=== PATIENT | female | born 1935 | race Caucasian/White ===

== ENCOUNTER 2019-03-27 22:07 | Emergency (ER) | payer OTHER | END 2019-03-28 02:00 | disposition home or self-care (01) | LOC: JER 03-28 02:00 | DX: I10 Essential (primary) hypertension (principal); E78.5 Hyperlipidemia, unspecified ==

== ENCOUNTER 2023-09-19 10:50 | Emergency (ER) | payer OTHER ==
[2023-09-19 11:08] VITALS: RESP 18; BMI 21.9
[2023-09-19 12:01] LABS: INR 1.16 (0.83-1.09); PROTHROMBIN TIME (PATIENT) 13.4 SEC (9.7-13.0)
[2023-09-19 12:04] LABS: ACTIVATED PTT 26.5 SECONDS (25.2-36.5)
[2023-09-19 12:06] LABS: BASO % 0.2 % (0-2.0); HEMATOCRIT 39.6 % (32.4-45.2); HEMOGLOBIN 13.2 GM/dL (10.7-15.3); LYMPH % 15.2 % (8-40); MCH 31.8 pg (25.7-33.7); MCHC 33.3 g/dl (32.0-36.0); MEAN CELL VOLUME 95.6 fl (80-96); MEAN PLT VOLUME 9.5 fl (7.5-11.1); MONO % 7.1 % (3.8-10.2); NEUT % 77.5 % (42.8-82.8); PLATELET COUNT 196 10^3/uL (134-434); RBC 4.14 M/mm3 (3.60-5.2); RDW 16.5 % (11.6-15.6); WHITE BLOOD COUNT 14.4 K/mm3 (4.0-10.0)
[2023-09-19 12:16] LABS: POTASSIUM 4.3 mmol/L (3.5-5.1)
[2023-09-19 12:19] LABS: CALCIUM 9.5 mg/dL (8.5-10.1)
[2023-09-19 12:23] LABS: CREATININE 0.9 mg/dL (0.55-1.3)
[2023-09-19 12:24] LABS: BILIRUBIN,TOTAL 0.9 mg/dL (0.2-1)
[2023-09-19] MEDS ORDERED: ACETAMINOPHEN 1000 MG/100 ML BAG IVPB ONE (13:18)
[2023-09-19] MEDS ORDERED: ACETAMINOPHEN 325 MG TABLET (FP) PO ONE (13:31)
[2023-09-19] MEDS ORDERED: CEPHALEXIN MONOHYDRATE 500 MG CAPSULE (UD) PO ONE (13:32)
[2023-09-19] MEDS ORDERED: SULFAMETHOXAZOLE/TRIMETHOPRIM 800MG/160MG D.S. TABLET PO ONE (13:33)
[2023-09-19] MEDS ORDERED: CEPHALEXIN MONOHYDRATE 500 MG CAPSULE (UD) ONE (13:56)
[2023-09-19] MEDS ORDERED: ACETAMINOPHEN 325 MG TABLET (FP) ONE (13:57)
[2023-09-19] MEDS ORDERED: SULFAMETHOXAZOLE/TRIMETHOPRIM 800MG/160MG D.S. TABLET ONE (13:57)
[2023-09-19 14:20] VITALS: BP 121/65; PULSE 97; TEMP 98.4
== END 2023-09-19 14:27 | disposition home or self-care (01) ==
LOC: JER 10:50
DX: M79.604 Pain in right leg (principal); R22.41 Localized swelling, mass and lump, right lower limb; L03.115 Cellulitis of right lower limb
CPT/HCPCS: 36415; 73590-TC-RT-FY; 80053; 85025; 85610; 85730; 86140; 93971-TC; 99285-25

== ENCOUNTER 2023-09-25 08:57 | Inpatient (IN) | payer MEDICARE, OTHER ==
[2023-09-25 09:09] VITALS: BMI 22.8
[2023-09-25 11:34] LABS: BASO % 0.1 % (0-2.0); HEMATOCRIT 37.5 % (32.4-45.2); HEMOGLOBIN 12.1 GM/dL (10.7-15.3); LYMPH % 11.4 % (8-40); MCH 31.5 pg (25.7-33.7); MCHC 32.3 g/dl (32.0-36.0); MEAN CELL VOLUME 97.6 fl (80-96); MONO % 2.6 % (3.8-10.2); NEUT % 85.9 % (42.8-82.8); PLATELET COUNT 380 10^3/uL (134-434); RBC 3.84 M/mm3 (3.60-5.2); WHITE BLOOD COUNT 13.3 K/mm3 (4.0-10.0)
[2023-09-25 11:51] LABS: POTASSIUM 4.5 mmol/L (3.5-5.1)
[2023-09-25 11:52] LABS: CALCIUM 9.6 mg/dL (8.5-10.1)
[2023-09-25 11:53] LABS: BLOOD UREA NITROGEN 15.4 mg/dL (7-18)
[2023-09-25 11:56] LABS: CREATININE 1.2 mg/dL (0.55-1.3)
[2023-09-25 11:57] LABS: TOT PROT 8.6 g/dl (6.4-8.2)
[2023-09-25 12:00] LABS: BILIRUBIN,TOTAL 0.5 mg/dL (0.2-1)
[2023-09-25] MEDS ORDERED: CLINDAMYCIN 600MG PREMIX IVPB 600 MG/50 ML BAG IVPB ONE ×2 (13:10→13:13)
[2023-09-25] MEDS: CLINDAMYCIN 600MG PREMIX IVPB 600 MG/50 ML BAG IVPB SCH (20:12)
[2023-09-25] MEDS: HEPARIN NA (PORCINE) 5,000 UNITS/ML 1ML VIAL SQ SCH (21:11)
[2023-09-25] MEDS: METOPROLOL TARTRATE 50 MG TABLET (FP) PO SCH (21:11)
[2023-09-25] MEDS: ATORVASTATIN CA 20 MG TABLET (FP) PO SCH (21:11)
[2023-09-26] MEDS: CLINDAMYCIN 600MG PREMIX IVPB 600 MG/50 ML BAG IVPB SCH ×2 (01:35→10:05)
[2023-09-26] MEDS: ACETAMINOPHEN 500 MG TABLET (FP) PO PRN ×2 (01:38→18:18)
[2023-09-26] MEDS: METOPROLOL TARTRATE 50 MG TABLET (FP) PO SCH ×2 (09:54→21:30)
[2023-09-26] MEDS: HEPARIN NA (PORCINE) 5,000 UNITS/ML 1ML VIAL SQ SCH ×2 (09:55→21:30)
[2023-09-26 11:45] LABS: BASO % 0.3 % (0-2.0); EOS % 0.2 % (0-4.5); HEMATOCRIT 34.6 % (32.4-45.2); HEMOGLOBIN 11.3 GM/dL (10.7-15.3); LYMPH % 31.3 % (8-40); MCH 31.5 pg (25.7-33.7); MCHC 32.7 g/dl (32.0-36.0); MEAN CELL VOLUME 96.2 fl (80-96); MEAN PLT VOLUME 8.5 fl (7.5-11.1); MONO % 7.5 % (3.8-10.2); NEUT % 60.7 % (42.8-82.8); PLATELET COUNT 355 10^3/uL (134-434); RBC 3.59 M/mm3 (3.60-5.2); RDW 16.5 % (11.6-15.6); WHITE BLOOD COUNT 7.7 K/mm3 (4.0-10.0)
[2023-09-26 12:13] LABS: POTASSIUM 4.4 mmol/L (3.5-5.1)
[2023-09-26 12:21] LABS: CALCIUM 9.2 mg/dL (8.5-10.1)
[2023-09-26 12:22] LABS: BLOOD UREA NITROGEN 15.8 mg/dL (7-18)
[2023-09-26 12:25] LABS: CREATININE 1.1 mg/dL (0.55-1.3)
[2023-09-26] MEDS: VANCOMYCIN/WATER FOR INJ (PEG) 1,000 MG/200 ML BAG IVPB SCH (12:31)
[2023-09-26] MEDS: ATORVASTATIN CA 20 MG TABLET (FP) PO SCH (21:30)
[2023-09-27] MEDS: ACETAMINOPHEN 500 MG TABLET (FP) PO PRN ×2 (07:40→21:41)
[2023-09-27 09:43] LABS: BASO % 0.2 % (0-2.0); EOS % 0.7 % (0-4.5); HEMATOCRIT 35.1 % (32.4-45.2); HEMOGLOBIN 11.8 GM/dL (10.7-15.3); LYMPH % 48.1 % (8-40); MCH 32.2 pg (25.7-33.7); MCHC 33.5 g/dl (32.0-36.0); MEAN CELL VOLUME 96.1 fl (80-96); MEAN PLT VOLUME 8.1 fl (7.5-11.1); MONO % 8.5 % (3.8-10.2); NEUT % 42.5 % (42.8-82.8); PLATELET COUNT 349 10^3/uL (134-434); RBC 3.66 M/mm3 (3.60-5.2); WHITE BLOOD COUNT 5.9 K/mm3 (4.0-10.0)
[2023-09-27 09:57] LABS: POTASSIUM 4.4 mmol/L (3.5-5.1)
[2023-09-27 10:28] LABS: ALBUMIN 3.3 g/dl (3.4-5.0); BLOOD UREA NITROGEN 14.4 mg/dL (7-18); CALCIUM 8.8 mg/dL (8.5-10.1); MAGNESIUM 2.4 mg/dL (1.8-2.4)
[2023-09-27] MEDS: HEPARIN NA (PORCINE) 5,000 UNITS/ML 1ML VIAL SQ SCH ×2 (10:28→21:40)
[2023-09-27] MEDS: METOPROLOL TARTRATE 50 MG TABLET (FP) PO SCH ×2 (10:28→21:40)
[2023-09-27 10:31] LABS: PHOSPHOROUS 3.9 mg/dL (2.5-4.9)
[2023-09-27 10:33] LABS: BILIRUBIN,TOTAL 0.5 mg/dL (0.2-1); TOT PROT 7.2 g/dl (6.4-8.2)
[2023-09-27] MEDS: VANCOMYCIN/WATER FOR INJ (PEG) 1,000 MG/200 ML BAG IVPB SCH (11:22)
[2023-09-27 12:04] VITALS: RESP 18
[2023-09-27] MEDS: ATORVASTATIN CA 20 MG TABLET (FP) PO SCH (21:41)
[2023-09-28] MEDS: HEPARIN NA (PORCINE) 5,000 UNITS/ML 1ML VIAL SQ SCH ×2 (09:26→21:29)
[2023-09-28] MEDS: METOPROLOL TARTRATE 50 MG TABLET (FP) PO SCH ×2 (09:26→21:29)
[2023-09-28] MEDS: DOXYCYCLINE HYCLATE 100 MG CAPSULE PO SCH ×2 (09:26→17:26)
[2023-09-28] MEDS: amLODIPine BESYLATE 10 MG TABLET (FP) PO SCH (09:26)
[2023-09-28] MEDS ORDERED: amLODIPine BESYLATE 10 MG TABLET (FP) PO SCH (10:00)
[2023-09-28 11:08] LABS: POTASSIUM 4.8 mmol/L (3.5-5.1)
[2023-09-28 11:12] LABS: CALCIUM 9.1 mg/dL (8.5-10.1)
[2023-09-28 11:13] LABS: ALBUMIN 3.5 g/dl (3.4-5.0); BLOOD UREA NITROGEN 12.9 mg/dL (7-18)
[2023-09-28 11:17] LABS: BILIRUBIN,TOTAL 0.6 mg/dL (0.2-1)
[2023-09-28 11:18] LABS: TOT PROT 7.6 g/dl (6.4-8.2)
[2023-09-28 12:17] LABS: HEMOGLOBIN 12.2 GM/dL (10.7-15.3); MCH 32.1 pg (25.7-33.7); MCHC 32.9 g/dl (32.0-36.0); MEAN CELL VOLUME 97.6 fl (80-96); MEAN PLT VOLUME 8.2 fl (7.5-11.1); PLATELET COUNT 377 10^3/uL (134-434); RBC 3.79 M/mm3 (3.60-5.2); RDW 16.7 % (11.6-15.6); WHITE BLOOD COUNT 9.1 K/mm3 (4.0-10.0)
[2023-09-28] MEDS: ATORVASTATIN CA 20 MG TABLET (FP) PO SCH (21:29)
[2023-09-28] MEDS: ACETAMINOPHEN 500 MG TABLET (FP) PO PRN (21:29)
[2023-09-29 09:27] LABS: HEMATOCRIT 36.7 % (32.4-45.2); HEMOGLOBIN 11.9 GM/dL (10.7-15.3); MCH 31.8 pg (25.7-33.7); MCHC 32.5 g/dl (32.0-36.0); MEAN CELL VOLUME 97.9 fl (80-96); MEAN PLT VOLUME 7.7 fl (7.5-11.1); PLATELET COUNT 356 10^3/uL (134-434); RBC 3.75 M/mm3 (3.60-5.2); RDW 16.5 % (11.6-15.6); WHITE BLOOD COUNT 8.4 K/mm3 (4.0-10.0)
[2023-09-29] MEDS: amLODIPine BESYLATE 10 MG TABLET (FP) PO SCH (09:33)
[2023-09-29] MEDS: DOXYCYCLINE HYCLATE 100 MG CAPSULE PO SCH (09:33)
[2023-09-29] MEDS: METOPROLOL TARTRATE 50 MG TABLET (FP) PO SCH (09:33)
[2023-09-29] MEDS: HEPARIN NA (PORCINE) 5,000 UNITS/ML 1ML VIAL SQ SCH (09:33)
[2023-09-29 14:37] VITALS: BP 133/66; PULSE 73; TEMP 98.3
== END 2023-09-29 16:35 | disposition home or self-care (01) | DRG 603 ==
LOC: JER 08:57 → JERBED 13:15 → J6S 16:15 → OBSVTOIN 09-26 10:44 → J6S 09-28 12:33
PROVIDERS: ADMIT Internal Medicine; ATTEND Internal Medicine
PROC: 0Y990ZZ Drainage of Right Lower Extremity, Open Approach (ICD-10-PCS; principal; 2023-09-25)
DX: L03.115 Cellulitis of right lower limb (principal); S80.11XA Contusion of right lower leg, initial encounter; L02.415 Cutaneous abscess of right lower limb; I10 Essential (primary) hypertension; E78.5 Hyperlipidemia, unspecified; A49.02 Methicillin resistant Staphylococcus aureus infection, unspecified site; D72.829 Elevated white blood cell count, unspecified; X58.XXXA Exposure to other specified factors, initial encounter; Y93.9 Activity, unspecified; Y92.89 Other specified places as the place of occurrence of the external cause; Y99.9 Unspecified external cause status
CPT/HCPCS: 36415; 73590-TC-RT-FY; 80048; 80053; 83735; 84100; 85025; 85027; 86140; 87040; 87070; 87081; 87186; 87205; 93005; 93010; 99285-25; G0378; J1644

== ENCOUNTER 2023-12-28 09:45 | Emergency (ER) | payer OTHER ==
[2023-12-28 10:12] VITALS: BP 165/76; PULSE 61; RESP 20; TEMP 98.1; BMI 22.4
[2023-12-28] MEDS: SODIUM CHLORIDE 0.9% 500 ML INFUS.BAG IV ONE (11:13)
[2023-12-28 11:14] LABS: BASO % 0.3 % (0-2.0); EOS % 0.3 % (0-4.5); HEMATOCRIT 40.6 % (32.4-45.2); HEMOGLOBIN 13.2 GM/dL (10.7-15.3); LYMPH % 29.4 % (8-40); MCH 32.1 pg (25.7-33.7); MCHC 32.6 g/dl (32.0-36.0); MEAN CELL VOLUME 98.7 fl (80-96); MEAN PLT VOLUME 8.8 fl (7.5-11.1); MONO % 5.1 % (3.8-10.2); NEUT % 64.9 % (42.8-82.8); PLATELET COUNT 194 10^3/uL (134-434); RBC 4.11 M/mm3 (3.60-5.2); RDW 16.5 % (11.6-15.6); WHITE BLOOD COUNT 6.3 K/mm3 (4.0-10.0)
[2023-12-28 11:54] LABS: POTASSIUM 5.3 mmol/L (3.5-5.1)
[2023-12-28 11:56] LABS: BLOOD UREA NITROGEN 14.7 mg/dL (7-18); CALCIUM 9.1 mg/dL (8.5-10.1); MAGNESIUM 2.7 mg/dL (1.8-2.4)
[2023-12-28 11:57] LABS: ALBUMIN 4.1 g/dl (3.4-5.0)
[2023-12-28 11:59] LABS: CREATININE 0.9 mg/dL (0.55-1.3)
[2023-12-28 12:01] LABS: BILIRUBIN,TOTAL 1.1 mg/dL (0.2-1)
[2023-12-28 12:04] LABS: N-TERMINAL BNP 311.2 pg/ml (5-450)
[2023-12-28 16:14] LABS: POTASSIUM 3.9 mmol/L (3.5-5.1)
[2023-12-28 16:16] LABS: BLOOD UREA NITROGEN 12.2 mg/dL (7-18)
[2023-12-28 16:19] LABS: CALCIUM 9.2 mg/dL (8.5-10.1); CREATININE 0.8 mg/dL (0.55-1.3)
== END 2023-12-28 17:00 | disposition home or self-care (01) ==
LOC: JER 09:45
DX: R23.2 Flushing (principal); R42 Dizziness and giddiness; Z20.822 Contact with and (suspected) exposure to COVID-19
CPT/HCPCS: 0241U-QW; 36415; 71045-TC-FY; 80048; 80053; 82962; 83735; 83880; 84484; 85025; 93005; 93010; 99285-25